=== PATIENT | male | born 1985 | race African-American/Black ===

== ENCOUNTER 2018-07-30 09:57 | Emergency (ER) | payer OTHER ==
[~2018-07-30] VITALS: Ht 185.4 cm; Wt 158.8 kg
== END 2018-07-30 12:42 | disposition home or self-care (01) ==
LOC: ER 09:57
DX: S61.021A Laceration with foreign body of right thumb without damage to nail, initial encounter (principal); W45.8XXA Other foreign body or object entering through skin, initial encounter; Y93.89 Activity, other specified; Y92.69 Other specified industrial and construction area as the place of occurrence of the external cause; Y99.8 Other external cause status